=== PATIENT | female | born 1955 | race Caucasian/White ===

== ENCOUNTER → 2020-01-29 | Outpatient (CLI) | payer MEDICARE ==
[2020-01-29 18:26] LABS: ALBUMIN 4.3 g/dL (3.5-5.0); ALKALINE PHOSPHATASE 55 U/L (38-126); ANION GAP 5 (5-19); ASPARTATE AMINO TRANSFERASE 28 U/L (14-36); BILIRUBIN,DIRECT 0.1 mg/dL (0.0-0.4); BILIRUBIN,TOTAL 0.5 mg/dL (0.2-1.3); BLOOD UREA NITROGEN 16 mg/dL (7-20); CARBON DIOXIDE 26 mmol/L (22-30); CHLORIDE 106 mmol/L (98-107); GLUCOSE 73 mg/dL (75-110); POTASSIUM 4.4 mmol/L (3.6-5.0); TOTAL PROTEIN 7.2 g/dL (6.3-8.2); TRIGLYCERIDES 141 mg/dL (<150)
[2020-01-29 18:38] LABS: DIRECT LDL 130 mg/dL (<100)
== END ==
LOC: OD 16:33
PROVIDERS: ATTEND Family Medicine
DX: E78.5 Hyperlipidemia, unspecified (principal); N28.9 Disorder of kidney and ureter, unspecified
CPT/HCPCS: 36415; 80053; 80061

== ENCOUNTER → 2020-01-29 | Outpatient (CLI) | payer MEDICARE ==
--- NOTE | 2020-01-30 08:58 | RADIOLOGY REPORT (SQ) ---
EXAM DESCRIPTION: U/S THYROID/SFT TISS HD NECK IMAGES COMPLETED DATE/TIME: 01/29/2020 5:28 pm REASON FOR STUDY: R59.0 LOCALIZED ENLARGED LYMPH NODES R59.0 LOCALIZED ENLARGED LYMPH NODES COMPARISON: None. TECHNIQUE: Dynamic and static grayscale images acquired of the localized site of clinical concern an d recorded on PACS. Additional selected color Doppler and spectral images recorded. SITE OF CONCERN: Right and left neck soft tissues. LIMITATIONS: None. FINDINGS: Bilateral circumscribed lymph nodes. On the right these measure 1.1 cm and 1.8 cm and on the left 1.5 cm. Smooth contour. IMPRESSION: NONSPECIFIC LYMPH NODES. TECHNICAL DOCUMENTATION: JOB ID: [id number] 2010 [employer]- All Rights Reserved Reading location - IP/workstation name: [email or web address]
== END ==
LOC: RAD 16:46
PROVIDERS: ATTEND Family Medicine
DX: R59.0 Localized enlarged lymph nodes (principal)
CPT/HCPCS: 76536

== ENCOUNTER → 2020-02-12 | Outpatient (CLI) | payer MEDICARE | LOC: OD 15:19 | PROVIDERS: ATTEND Family Medicine | DX: L65.9 Nonscarring hair loss, unspecified (principal) | CPT/HCPCS: 36415; 82306; 82607; 84443 ==

== ENCOUNTER → 2020-03-04 | Outpatient (CLI) | payer MEDICARE ==
[2020-03-05 10:37] LABS: HEPATITS B SURFACE ANTIGEN Negative (Negative)
[2020-03-05 10:41] LABS: HEPATITIS C VIRUS ANTIBODY <0.1 s/co ratio (0.0-0.9)
[2020-03-05 14:51] LABS: CYTOMEGALOVIRUS IGG AB <0.60 U/mL (0.00-0.59); CYTOMEGALOVIRUS IGM AB <30.0 AU/mL (0.0-29.9)
== END ==
LOC: OD 11:45
PROVIDERS: ATTEND Surgery
DX: T14.8XXA Other injury of unspecified body region, initial encounter (principal); W57.XXXA Bitten or stung by nonvenomous insect and other nonvenomous arthropods, initial encounter; R53.83 Other fatigue
CPT/HCPCS: 36415; 80074; 86644; 86664; 86665; 86757

== ENCOUNTER → 2020-04-23 | Outpatient (CLI) | payer MEDICARE ==
--- NOTE | 2020-04-23 14:10 | WOMENS IMAGING REPORT ---
EXAM DESCRIPTION: 3D SCREENING MAMMO BILAT IMAGES COMPLETED DATE/TIME: 04/23/2020 10:53 am REASON FOR STUDY: Z12.31 ENCNTR SCREEN MAMMOGRAM FOR MALIGNANT NEOPLASM OF BREAST Z12.31 ENCNTR SCR EEN MAMMOGRAM FOR MALIGNANT NEOPLASM OF TONY COMPARISON: None available EXAM PARAMETERS: Views: Standard craniocaudal and mediolateral oblique views of each breast recorded using digital acquisition and breast tomosynthesis. Read with the assistance of CAD. .[facility] - [employer] Version 9.2 LIMITATIONS: None. FINDINGS: No suspicious masses, suspicious calcifications or architectural distortion. No areas of c oncern. IMPRESSION: NEGATIVE MAMMOGRAM. BIRADS 1. BREAST DENSITY: b. There are scattered areas of fibroglandular density. BIRAD: ASSESSMENT: 1 NEGATIVE RECOMMENDATION: ROUTINE SCREENING Please continue yearly bilateral screening mammography/tomosynthesis in April 2021 COMMENT: The patient has been notified of the results by letter per SA requirements. Additional no tification policies are in place for contacting patient with suspicious or incomplete findings. Quality ID #[id number]: The [employer] recommends an annual screening mammogram for women aged 40 years or over. This facility utilizes a reminder system to ensure that all patients receive reminder letters, and/or direct phone calls for appointments. This includes reminders for routine scr eening mammograms, diagnostic mammograms, or other Breast Imaging Interventions when appropriate. Th is patient will be placed in the appropriate reminder system. TECHNICAL DOCUMENTATION: FINDING NUMBER: (1) ASSESSMENT: (1) JOB ID: [id number] 2010 [employer]- All Rights Reserved Reading location - IP/workstation name: [email or web address]
== END ==
LOC: WI 10:15
PROVIDERS: ATTEND Family Medicine
DX: Z12.31 Encounter for screening mammogram for malignant neoplasm of breast (principal)
CPT/HCPCS: 77063; 77067

== ENCOUNTER 2020-07-06 18:45 | Emergency (ER) | payer MEDICARE ==
[2020-07-06 18:55] VITALS: BP 132/53
--- NOTE | 2020-07-06 19:18 | ER Document Report ---
ED Foreign Body - General Chief Complaint: Swallowed Foreign Body Stated Complaint: SWALLOWED SMALL CHICKEN BONE Time Seen by Provider: 07/06/20 19:15 Primary Care Provider: JENNIFFER JULIEN MD [Primary Care Provider] - Follow up as needed Notes: CHIEF COMPLAINT: Possible swallowed chicken bone HPI: 64-year-old female presenting for possible swallowed chicken bone she felt like it was approximately 1 to 2 cm light in length. She swallowed it without difficulty but was concerned about passing it. She did not feel it lodged in her throat, does not have a sensation of anything in her throat. She does not have a sensation of anything in her chest she is not coughing or short of breath she has no abdominal pain complaints. ROS: See HPI - all other systems were reviewed and are otherwise negative Constitutional: no fever Eyes: no drainage, no blurred vision ENT: no runny nose, no sore throat Cardiovascular: no chest pain Resp: no SOB, no cough GI: no vomiting, no diarrhea, no abdominal pain : no dysuria Integumentary: no rash Allergy: no hives Musculoskeletal: no extremity pain or swelling Neurological: no numbness/tingling, no weakness MEDICATIONS: I agree with the patient medications as charted by the RN. ALLERGIES: I agree with the allergies as charted by the RN. PAST MEDICAL HISTORY/PAST SURGICAL HISTORY: Reviewed and agree as charted by RN. SOCIAL HISTORY: Reviewed and agree as charted by RN. FAMILY HISTORY: No significant familial comorbid conditions directly related to patient complaint EXAM: Reviewed vital signs as charted by RN. CONSTITUTIONAL: Alert and oriented and responds appropriately to questions. Well-appearing; well-nourished HEAD: Normocephalic; atraumatic EYES: PERRL; Conjunctivae clear, sclerae non-icteric ENT: normal nose; no rhinorrhea; moist mucous membranes; pharynx without lesions noted, no uvula edema or deviation, no tonsillar hypertrophy, phonation 98% on room air not hypoxic normal NECK: Supple without meningismus; non-tender; no cervical lymphadenopathy, no masses CARD: RRR; no murmurs, no clicks, no rubs, no gallops; symmetric distal pulses RESP: Normal chest excursion without splinting or tachypnea; breath sounds clear and equal bilaterally; no wheezes, no rhonchi, no rales, pulse oximetry ABD/GI: Normal bowel sounds; non-distended; soft, non-tender, no rebound, no guarding; no palpable organomegaly or masses. BACK: The back appears normal and is non-tender to palpation, there is no CVA tenderness EXT: Normal ROM in all joints; no cyanosis, no effusions, no edema SKIN: Normal color for age and race; warm; dry; good turgor; no acute lesions noted NEURO: Moves all extremities equally; Motor and sensory function intact PSYCH: The patient's mood and manner are appropriate. Grooming and personal hygiene are appropriate. MDM: 64-year-old female who swallowed a small chicken bone with her meal about an hour and a half ago has absolutely no symptoms but was concerned about passage. She felt like the bone may have been 1 to 2 cm in length she is not sure. She did pass it by swallowing with no difficulty. We spoke at length. At this time there is no definitive indication for emergent imaging. If patient develops abdominal pain or blood by rectum she will likely need to return for reevaluation otherwise she may follow-up with her PCP - Related Data Allergies/Adverse Reactions: doxycycline Allergy (Verified 07/06/20 18:54) tramadol Adverse Reaction (Verified 07/06/20 18:53) Tachycardia Home Medications: ASA. omeprazole. pravastatin. ibuprofen Past Medical History - Social History Smoking Status: Never Smoker Chew tobacco use (# tins/day): No Frequency of alcohol use: Rare Drug Abuse: None Family History: Reviewed & Not Pertinent - Past Medical History Cardiac Medical History: Reports: Hx Hypercholesterolemia Renal/ Medical History: Reports: Hx Renal Insufficiency Musculoskeletal Medical History: Reports Hx Fibromyalgia Past Surgical History: Reports: Hx Hysterectomy, Hx Orthopedic Surgery Physical Exam - Vital signs Vitals: Temp Pulse Resp BP Pulse Ox 97.7 F 105 H 16 132/53 H 98 07/06/20 18:54 07/06/20 18:54 07/06/20 18:54 07/06/20 18:54 07/06/20 18:54 Course - Vital Signs Vital signs: Temp Pulse Resp BP Pulse Ox 97.7 F 105 H 16 132/53 H 98 07/06/20 18:54 07/06/20 18:54 07/06/20 18:54 07/06/20 18:54 07/06/20 18:54 - Laboratory Results Critical Laboratory Results Reviewed: No Critical Results - Radiology Results Critical Radiology Results Reviewed: No Critical Results Discharge - Discharge Clinical Impression: Ingestion of foreign body Qualifiers: Encounter type: initial encounter Qualified Code(s): T18.9XXA - Foreign body of alimentary tract, part unspecified, initial encounter Condition: Stable Disposition: HOME, SELF-CARE Additional Instructions: Follow-up with your primary care provider for reevaluation as needed. If you develop abdominal pain or start passing blood with your stools return for reevaluation Referrals: JENNIFFER JULIEN MD [Primary Care Provider] - Follow up as needed
== END 2020-07-06 19:20 | disposition home or self-care (01) ==
LOC: ER 18:45
DX: T18.9XXA Foreign body of alimentary tract, part unspecified, initial encounter (principal); X58.XXXA Exposure to other specified factors, initial encounter; Z88.6 Allergy status to analgesic agent; E78.00 Pure hypercholesterolemia, unspecified
CPT/HCPCS: 99282